=== PATIENT | female | born 1985 | race Caucasian/White ===

== ENCOUNTER 2018-07-19 13:34 | Outpatient (CLI) | payer OTHER | END 2018-07-19 13:35 | disposition home or self-care (01) | LOC: BICMRI 13:34 | PROVIDERS: ATTEND Orthopaedic Surgery | DX: M23.92 Unspecified internal derangement of left knee (principal); S83.412A Sprain of medial collateral ligament of left knee, initial encounter ==

== ENCOUNTER 2020-03-05 10:37 | Emergency (ER) | payer BC, OTHER ==
[2020-03-05] MEDS ORDERED: Lidocaine 1% (PF) 30 ML VIAL ONE (10:47)
[2020-03-05] MEDS ORDERED: Adacel (T-DAP) 0.5 ML SYRINGE ONE (11:01)
[2020-03-05] MEDS ORDERED: Bacitracin 1 PK ONE (11:41)
== END 2020-03-05 11:51 | disposition home or self-care (01) ==
LOC: ERS 10:37
DX: S61.011A Laceration without foreign body of right thumb without damage to nail, initial encounter (principal); Z23 Encounter for immunization; Z79.899 Other long term (current) drug therapy; W26.8XXA Contact with other sharp object(s), not elsewhere classified, initial encounter
CPT/HCPCS: 12002; 90471; 90715; J2001

== ENCOUNTER 2020-03-18 08:08 | Emergency (ER) | payer BC ==
[2020-03-18 08:53] LABS: #Basophils 0.1 thou/uL (0.0-0.2); #Eosinphils 0.2 thou/uL (0.0-0.7); #Lymphocytes 1.7 thou/uL (1.20-3.40); #Monocytes 0.5 thou/uL (0.11-0.59); #Neutrophils 5.6 thou/uL (1.40-6.50); %Basophils 0.7 % (0.0-1.0); %Lymphocytes 20.5 % (21.0-51.0); %Monocytes 6.4 % (0.0-10.0); %Neutrophils 69.4 % (42.0-75.0); Hemoglobin 14.3 g/dL (12.0-16.0); Mean Corpuscular HGB CONC 32.8 g/dL (32.0-36.0); Mean Corpuscular Hemoglobin 30.4 pg (27.0-31.0); Mean Corpuscular Volume 92.8 fL (78.0-98.0); Mean Platelet Volume 7.4 fL (7.4-10.4); Platelet Count 314 thou/uL (130-400); RBC Distribution Width 11.5 % (11.5-14.5); Red Blood Cell (RBC) Count 4.71 mill/uL (4.20-5.40)
[2020-03-18 09:22] LABS: Bilirubin Negative (Negative); Blood, Urine Negative (Negative); Clarity Clear (Clear); Glucose, Urine (Dipstick) Normal (Negative); Leukocyte Negative Leu/uL (Negative); Nitrite Negative (Negative); Protein, Urine (Dipstick) Negative (Neg-Trace); Urobilinogen Normal mg/dL (Less than 2)
--- NOTE | 2020-03-18 09:44 | ULT ---
Exam: Transabdominal and endovaginal pelvic ultrasound HISTORY: patient. Vaginal bleeding. COMPARISON:09/29/2016 TECHNIQUE: Transabdominal and endovaginal imaging of the pelvis is performed. Ovaries are interrogate d with grayscale, color flow, Doppler imaging and spectral wave form analysis FINDINGS: Uterus: No myometrial masses. Uterus measurin.2 x 4.4 x 6.1 cm. Endometrium: Within the endometrium, there is a gestational sac, yolk sac and pole. No evidence of a subchorionic hemorrhage. [place]-rump length is 0.29 cm corresponding to gestational age of 5 weeks 6 days. heart tones: Not appreciated this time . Free fluid: Small amount of free fluid in the cul-de-sac Right ovary: Normal echotexture. Small anechoic focus. Right ovary measurement: 2.7 x 3.6 cm in the sagittal plane Left ovary: Not appreciated Left ovary measurements: Not applicable Ovarian Doppler: There is vascular flow to the right ovary. IMPRESSION: 1. Single intrauterine gestation. Gestational age by crown-rump length is 5 weeks 6 days. Currently, cardiac activity is not appreciated. 2. No subchorionic hemorrhage. 3. Follow-up ultrasound and serial beta hCG is recommended
== END 2020-03-18 11:20 | disposition home or self-care (01) ==
LOC: ERS 08:08
DX: O20.9 Hemorrhage in early pregnancy, unspecified (principal); Z3A.01 Less than 8 weeks gestation of pregnancy; Z79.899 Other long term (current) drug therapy
CPT/HCPCS: 76856; 81003; 84702; 85025; 86900; 86901; 90384; 96372